=== PATIENT | male | born 1975 | race Caucasian/White ===

== ENCOUNTER → 2017-02-15 | Outpatient (CLI) | payer SELFPAY ==
[2017-02-15 11:54] LABS: BASOPHILS # (AUTO) 0.02 10*3/UL; BASOPHILS % (AUTO) 0.2 % (0-1); EOSINOPHILS # (AUTO) 0.14 10*3/UL; EOSINOPHILS % (AUTO) 1.5 % (0-8); HEMATOCRIT 46.7 % (42.0-52.0); HEMOGLOBIN 15.2 g/dL (14.0-18.0); LYMPHOCYTES # (AUTO) 1.54 10*3/uL; MEAN CORPUSCULAR HEMOGLOBIN 30.2 PG (27-31); MEAN CORPUSCULAR HGB CONC 32.5 g/dL (33-37); MEAN CORPUSCULAR VOLUME 92.7 FL (80-90); MEAN PLATELET VOLUME 10.2 FL (7.4-12.2); MONOCYTES # (AUTO) 0.86 10*3/UL (0.3-0.8); MONOCYTES % (AUTO) 9.2 % (5-15); NEUTROPHILS # (AUTO) 6.72 10*3/UL; NEUTROPHILS % (AUTO) 72.2 % (50-80); RED BLOOD COUNT 5.04 10^6/uL (4.70-6.10)
[2017-02-15 12:10] LABS: BILIRUBIN,URINE NEGATIVE (NEG); BLOOD UREA NITROGEN 20 mg/dL (7-22); BUN/CREATININE RATIO 15.38 (6-20); CALCIUM 9.2 mg/dL (8.7-10.7); CHOL/HDL RATIO 3.65 RATIO (0-4.0); COLOR,URINE YELLOW; EST GLOMERULAR FILTRATION > 60 (>60 ml/min/1.73m(2)); GLUCOSE, URINE (UA) NEGATIVE (NEG); HDL CHOLESTEROL 32 mg/dL (40-150); NITRATE,URINE NEGATIVE (NEG); OCCULT BLOOD,URINE NEGATIVE (NEG); PH,URINE 5.5 (5.0-8.5); PROTEIN,URINE 100 mg/dl (NEG); SERUM ALBUMIN 3.8 g/dL (3.5-4.8); SERUM CHOLESTEROL 117 mg/dL (120-200); UROBILINOGEN,URINE 0.2 mg/dL (0.2)
[2017-02-15 12:16] LABS: PLATELET MORPHOLOGY COMMENT NORMAL MORPHOLOGY (NORM); RBC MORPHOLOGY COMMENT NORMAL MORPHOLOGY (NORM); WBC MORPHOLOGY COMMENT NORMAL MORPHOLOGY (NORM)
[2017-02-15 12:17] LABS: CLARITY,URINE CLEAR (CLEAR); SQUAMOUS EPITHELIAL CELL,UR RARE; URINE SAMPLE TYPE CLEAN CATCH URINE; WBC,URINE 0-3
== END ==
LOC: MOB LAB 10:40
DX: I42.1 Obstructive hypertrophic cardiomyopathy (principal); E66.01 Morbid (severe) obesity due to excess calories; R31.29 Other microscopic hematuria; I10 Essential (primary) hypertension; N20.9 Urinary calculus, unspecified; I69.898 Other sequelae of other cerebrovascular disease; I82.891 Chronic embolism and thrombosis of other specified veins
CPT/HCPCS: 36415; 80053; 80061; 81001; 84443; 85025

== ENCOUNTER → 2017-06-08 | Outpatient (CLI) | payer SELFPAY ==
--- NOTE | 2017-06-08 09:06 | DI ---
XR WRIST COMPLETE MIN 3VW,06/08/2017 8:03 AM: Clinical History: Right wrist pain Previous Exam: December 26, 2014 Findings: 3 views of the right wrist are obtained, and demonstrate anatomic alignment without fractures. There is an old stable avulsion fracture of the right distal ulnar styloid. There is mild soft tissue swell ing. Impression: 1. No fracture. 2. Old avulsion of the distal right ulnar styloid. Note: Consider followup imaging in 7-10 days if pain persists or worsens.
== END ==
LOC: MOB RAD 08:05
PROVIDERS: ATTEND Physician Assistant
DX: M25.531 Pain in right wrist (principal); R60.0 Localized edema; Z87.898 Personal history of other specified conditions
CPT/HCPCS: 73110

== ENCOUNTER 2018-09-21 12:22 | Inpatient (IN) ==
[2018-09-21] MEDS ORDERED: DILTIAZEM 5 MG/ML - 5 ML IV ONE (13:02)
[2018-09-21] MEDS ORDERED: ONDANSETRON 4 MG/2 ML VIAL IVP ONE (13:02)
[2018-09-21] MEDS ORDERED: Sodium Chloride 0.9% 1,000 ML PRIMARY IV ONE (13:02)
--- NOTE | 2018-09-21 13:03 | PDOC ---
Epistaxis / Nasal FB - General Chief Complaint: Nasal/Mouth Problem /Injury Stated Complaint: nose bleed Date Seen by Provider: 09/21/18 Time Seen by Provider: 12:57 Source: POSITIVE: Patient Exam Limitations: POSITIVE: No limitations Nurse's Notes Reviewed & Considered: Yes - History of Present Illness Initial Comments: This is a well-developed, obese, soft 42-year-old male, complaining of nosebleed. Patient with epistaxis that's been ongoing since Wednesday, from the right naris. Patient stopped his Coumadin on Wednesday and continues to have nosebleed. He denies any headache, no sore throat, no chest pain or shortness of breath, no cough, no nausea vomiting or diarrhea, no hematuria dysuria, no myalgias or arthralgias, no rashes. Timing: REPORTS: Abrupt, Getting Worse Severity: Moderate Context: REPORTS: None Modifying Factors: improves with: Nothing Similar Symptoms Previously: No Recent Care Received: REPORTS: Denies Any Prior Injuries Related to Current Complaint?: No - Patient Allergies Allergies/Adverse Reactions: Allergies 3 Allergy/AdvReac Type Severity Reaction Status Date / Time No Known Allergies Allergy Verified 09/21/18 12:39 - Patient Home Medications Home Medications: Home Medications allopurinol 300 mg tablet 300 mg PO QD #90 tab 10/26/17 bupropion HCl 100 mg tablet 100 mg PO BID #180 tab 10/26/17 digoxin 125 mcg tablet 125 mcg PO QD #90 tab 10/26/17 diltiazem CD 300 mg capsule,extended release 24 hr 300 mg PO QD #90 cap furosemide 40 mg tablet 40 mg PO QD #90 tab 10/26/17 metoprolol tartrate 25 mg tablet 12.5 mg PO BID #90 tab 10/26/17 warfarin 5 mg tablet 15 mg PO DIRECTED #90 tab 03/15/18 Past Medical History - heen HEENT History: Hard of Hearing, Chipped or Loose Teeth Additional HEENT History: [place] in right ear Cardiovascular History: CHF, Arrhythmia, Syncope Additional Cardiovasular History: AFIB, Cardiomyopathy Respiratory History: Sleep Apnea Gastrointestinal History: Denies History Genitourinary History: Other (please comment) Additional Genitourinary History: Meatal stenosis with mentotomy and suprapubic catheter. Endocrine History: Denies History Musculoskeletal History: Gout, Joint Pain Prosthesis or Implant: No Additional Musculoskeletal History: joint pain in ankle. Neurological History: CVA, Other (please comment) Additional Neurological History: Hx of CVA and current admit for CVA. Blood Disorders: Denies History Psychiatric History: Depression, Substance Abuse Additional Psychiatric History: Acoholic 4 years ago, sober since. History of Sexually Transmitted Diseases: No Cancer History: Denies History History of MDRO: No History of Other Communicable Diseases: No Alcohol Use: None In the Past 12 Months, Have Used or Abuse Any Substance: None Previous Surgical History: Yes Anesthesia Reactions: No Malignant Hyperthermia: No Significant Family History: Cancer Additional Family History: father of pancreatic cancer. ROS - Limitations ROS Limitations: No Limitations Constitution: REPORTS: Denies Symptoms Cardiovascular: REPORTS: Denies Cardiac Symptoms Respiratory: REPORTS: Denies Resp Symptoms Neurological: REPORTS: Denies Neuro Symptoms Gastrointestinal: REPORTS: Denies GI Symptoms Endocrine: REPORTS: Denies Symptoms Musculoskeletal: REPORTS: Denies MS Symptoms Genitourinary: REPORTS: Denies Symptoms Eyes: REPORTS: Denies Symptoms ENT: REPORTS: Nose Bleed Skin: REPORTS: Denies Skin Symptoms Lympathic: REPORTS: Denies Lympathic Symptoms Immunologic: POSITIVE: Denies Symptoms Psychiatric: POSITIVE: Denies Psych Symptoms Nose Complaint Exam - General Appearance General Appearance: POSITIVE: Alert, Cooperative, No Acute Distress - HEENT Head / Face: POSITIVE: Atraumatic, Normal Inspection, No Facial Swelling Eyes: POSITIVE: Inspection Normal, PERRL, EOM's Intact, Eyelids Uninjured, Conjunctivae Uninjured, No Nystagmus, No Globe Trauma, Sclera Normal Ears: POSITIVE: Ears Normal Inspection, Auricle Normal Nose: POSITIVE: Epistaxis (right naris), Active Bleeding Oropharynx: POSITIVE: External Inspection Nml, Pharynx Inspect. Nml, Airway Intact, Voice Normal, Moist Mucous Membranes, No Oral Injury, Lips Normal, Gums Normal, No Drooling, No Thrush, Normal Gag Reflex Dental: POSITIVE: No Dental Injury - Neurological / Psychological Neurological: POSITIVE: Affect Apporpriate, Oriented X3, Motor Normal, Sensation Normal - Neck Neck: POSITIVE: Normal Inspection, Thyroid Normal - Respiratory Respiratory: POSITIVE: No Respiratory Distress, Breath Sounds Normal, Chest Non- Tender - Cardiovascular Cardiovascular: POSITIVE: Heart Sounds Normal, Strong Pulses, Irregularly Irreg Rhythm, Tachycardia Peripheral Pulses: Radial (R): 4+ - Abdomen Abdomen: Soft: (All Quadrants), Normal Bowel Sounds: (All Quadrants), Denies Tenderness: (All Quadrants), No Splenomegaly: (All Quadrants), No Hepatomegaly: (All Quadrants), No Guarding: (All Quadrants), No Rebound: (All Quadrants), No Palpable Pulse: (All Quadrants), No Palpabale Mass: (All Quadrants), No Distention: (All Quadrants), No Rigidity: (All Quadrants) - Skin Skin: POSITIVE: Normal Color, No Skin Rash Nose Complaint Progress - Results Reviewed by me CBC and BMP: 09/22/18 04:40 09/21/18 13:02 Lab Results:: Laboratory Results 3 09/21/18 09/21/18 09/21/18 13:02 13:02 13:02 WBC 10.32 RBC 5.30 Hgb 15.9 Hct 49.3 MCV 93.0 H MCH 30.0 MCHC 32.3 L RDW Std Deviation 48.6 RDW Coeff of [place] 14.5 Plt Count 249 MPV 9.8 Immature Gran % (Auto) 0.4 Neut % (Auto) 74.6 Lymph % (Auto) 13.0 [place] % (Auto) 11.0 Eos % (Auto) 0.8 Baso % (Auto) 0.2 Immature Gran # (Auto) 0.04 Neut # (Auto) 7.70 Lymph # (Auto) 1.34 [place] # (Auto) 1.14 H Eos # (Auto) 0.08 Baso # (Auto) 0.02 WBC Morphology Comment Normal morphology Plt Morphology Comment Normal morphology RBC Morph Comment Normal morphology PT 26.2 H INR 2.52 Sodium 142 Potassium 5.1 Chloride 106 Carbon Dioxide 27 Anion Gap 9 BUN 20 Creatinine 1.1 Estimated GFR > 60 BUN/Creatinine Ratio 18.18 Glucose 87 Calculated Osmolality 295.0 H Calcium 9.1 Total Bilirubin 0.7 AST 26 ALT 33 Alkaline Phosphatase 71 C-Reactive Protein < 0.5 NT-Pro-B Natriuret Pep 1850 H Total Protein 7.9 Albumin 4.2 Globulin 3.7 Albumin/Globulin Ratio 1.10 L Digoxin 3 09/21/18 13:25 WBC RBC Hgb Hct MCV MCH MCHC RDW Std Deviation RDW Coeff of Rossy Plt Count MPV Immature Gran % (Auto) Neut % (Auto) Lymph % (Auto) [place] % (Auto) Eos % (Auto) Baso % (Auto) Immature Gran # (Auto) Neut # (Auto) Lymph # (Auto) [place] # (Auto) Eos # (Auto) Baso # (Auto) WBC Morphology Comment Plt Morphology Comment RBC Morph Comment PT INR Sodium Potassium Chloride Carbon Dioxide Anion Gap BUN Creatinine Estimated GFR BUN/Creatinine Ratio Glucose Calculated Osmolality Calcium Total Bilirubin AST ALT Alkaline Phosphatase C-Reactive Protein NT-Pro-B Natriuret Pep Total Protein Albumin Globulin Albumin/Globulin Ratio Digoxin 0.5 L - Patient's Progress Status: POSITIVE: Improved MDM / ED Course: The patient was evaluated, an IV started, blood drawn and sent to the lab for studies, EKG and chest x-ray were obtained. Findings: CBC is unremarkable, CMP is normal. PTT is 26.2, INR is 2.52. BNP is 1850. EKG, per my interpretation, shows an atrial fibrillation with rate 125 beats a minute. Chest x-ray, per my interpretation, shows congestive heart failure with cardiomegaly. Assessment: #1 atrial fibrillation with RVR. #2 epistaxis. Plan: Patient is started on a car diazepam drip after a car dozing bolus. A Rhino Rocket is placed into his right naris and his epistaxis is controlled. Patient is admitted in stable condition. - Consult Consult (If Yes, Name of Consulting MD & Time Called): Yes (dr wu, 1440hrs) Consulting MD will see pt:: POSITIVE: [facility] [place] Admit Counseled: POSITIVE: Patient, RE: Lab Results, RE: Radiology Results, RE: DX Patient Care Time - Estimated PCT Patient Care Time (In Minutes): 30 Vital Signs - VS Reviewed Vital Signs Reviewed: Yes Discharge Clinical Impression: Epistaxis, Atrial fibrillation with RVR, Supratherapeutic INR, HTN ( hypertension) Discharge Disposition: Admit to Inpatient Condition: Stable Date Decision to Admit to Inpatient: 09/21/18 Time Decision to Admit to Inpatient: 16:30
--- NOTE | 2018-09-21 13:30 | EKG ---
Measurements Intervals [place] Rate: 125 P: WI: 0 QRS: -65 QRSD: 137 T: 120 QT: 327 QTc: 401 Interpretive Statements ATRIAL FIBRILLATION WITH RAPID VENTRICULAR RESPONSE LEFT AXIS DEVIATION [QRS AXIS < -30] LEFT ANTERIOR HEMIBLOCK INFERIOR MYOCARDIAL INFARCTION ,AGE UNDETERMINED SLOW R WAVE PROGRESSION V1-V5, CANNOT R/O OLD ANTERIOR MD Compared to ECG 04/14/2018 19:15:14 No significant changes Electronically Signed On 09-21-18 15:06:17 MST by Coleman Vergara [email or web address]
[2018-09-21 13:46] LABS: BASOPHILS # (AUTO) 0.02 10*3/UL; BASOPHILS % (AUTO) 0.2 % (0-1); EOSINOPHILS # (AUTO) 0.08 10*3/UL; EOSINOPHILS % (AUTO) 0.8 % (0-8); Hematocrit [HCT] 49.3 % (42.0-52.0); Hemoglobin [HGB] 15.9 g/dL (14.0-18.0); LYMPHOCYTES # (AUTO) 1.34 10*3/uL; MEAN CORPUSCULAR HGB CONC 32.3 g/dL (33-37); MEAN PLATELET VOLUME 9.8 FL (7.4-12.2); MONOCYTES # (AUTO) 1.14 10*3/UL (0.3-0.8); NEUTROPHILS % (AUTO) 74.6 % (50-80)
[2018-09-21 13:50] LABS: PLATELET MORPHOLOGY COMMENT NORMAL MORPHOLOGY (NORM); RBC MORPHOLOGY COMMENT NORMAL MORPHOLOGY (NORM); WBC MORPHOLOGY COMMENT NORMAL MORPHOLOGY (NORM)
[2018-09-21 14:06] LABS: BLOOD UREA NITROGEN 20 mg/dL (7-22); BUN/CREATININE RATIO 18.18 (6-20); SERUM ALBUMIN 4.2 g/dL (3.5-4.8)
[2018-09-21] MEDS: Diltiazem Drip 125 MG in Sodium Chloride 0.9% 100 ML IV ONE ×2 (14:48→22:49)
[2018-09-21] MEDS ORDERED: LIDOCAINE W/ SODIUM BICARB 0.5 ML SYR SUBD PRN (16:15)
[2018-09-21] MEDS ORDERED: CALCIUM CARBONATE 500 MG (TUMS) CHEWABLE TABLET PO PRN (16:15)
[2018-09-21] MEDS ORDERED: ACETAMINOPHEN 325 MG TABLET PO PRN (16:15)
[2018-09-21] MEDS ORDERED: DOCUSATE 100 MG CAPSULE PO PRN (16:15)
[2018-09-21] MEDS ORDERED: ONDANSETRON 4 MG/2 ML VIAL IVP PRN (16:15)
--- NOTE | 2018-09-21 16:20 | PDOC ---
HPI - History of Present Illness Date of Service: 09/21/18 Time of Service: 16:00 Chief Complaint: Nosebleed, tachycardia History of Present Illness: This is a 42 years old male with medical history significant for history of atrial fibrillation, history of gout who came into the hospital with history of nosebleed that started first on Wednesday he said he blew his nose and then started to have bleeding with pressure stopped then the same thing happened again yesterday he skipped his Coumadin and was able to stop the bleeding however today he started to bleed and was unable to stop the nosebleed and because of that he came into the ER. In the ER he was found to be in atrial fibrillation fast rate and he was given Cardizem IV then he was put on a drip. In addition he did have a rhino inserted to stop the bleeding. And he was admitted. He is denying chest pain or shortness of breath, nausea or dizziness. The bleeding seemed to be stopped. He said in addition to skipping the Coumadin he did not take his medication yesterday and today. Past Medical History Medical History: N. Atrial fibrillation. 2. Hypertrophic cardiomyopathy. 3. Obesity. 4. Hypertension. 5. Thromboembolic cerebrovascular accident in 2012, on chronic Coumadin therapy now for prevention. 6. Urethral strictures. 7. Gout. B. Obesity, morbidly obese Surgical History: 1. Left ankle fracture repair Pertinent Family History: Father due to pancreatic cancer. Mother is healthy Past Social History: Does not smoke or drink. Has one child, described as healthy. No alcohol. Currently resides with his mother and step-father Tobacco Use: Former Smoker In the Past 12 Months, Have Used or Abuse Any of the Following Substance: None Alcohol Use: None Medication / Allergies Home Medications: Home Medications 3 Medication Instructions Recorded Confirmed Type allopurinol 300 mg tablet 300 mg PO QD #90 tab 10/26/17 09/21/18 Rx bupropion HCl 100 mg tablet 100 mg PO BID #180 tab 10/26/17 09/21/18 Rx digoxin 125 mcg tablet 125 mcg PO QD #90 tab 10/26/17 09/21/18 Rx diltiazem CD 300 mg 300 mg PO QD #90 cap 10/26/17 09/21/18 Rx capsule,extended release 24 hr furosemide 40 mg tablet 40 mg PO QD #90 tab 10/26/17 09/21/18 Rx metoprolol tartrate 25 mg tablet 12.5 mg PO BID #90 tab 10/26/17 09/21/18 Rx warfarin 5 mg tablet 15 mg PO DIRECTED #90 tab 03/15/18 09/21/18 Rx Allergies/Adverse Reactions: Allergies 3 Allergy/AdvReac Type Severity Reaction Status Date / Time No Known Allergies Allergy Verified 09/21/18 12:39 Review of Systems - Review of Systems All Systems: Reviewed & No Additional Complaints Except as Stated Exam - Vitals Vital Signs: Vital Signs Temperature 97 F Temperature Source Temporal Artery Scan Pulse Rate [Apical] 141 Pulse Rate [Pulse Oximeter] 97 Respiratory Rate 15 Blood Pressure [Right Arm] 108/93 Blood Pressure [Left Arm] 155/133 Pulse Ox 95 Oxygen Delivery Method Room Air Height 5 ft 11 in Weight 337 lb 4.8 oz - General General Appearance: No Acute Distress - Head Head Exam: Normal Inspection - Eye Eye Exam: POSITIVE: Normal Appearance - ENT Additonal ENT Exam Details: No is in his right nostril - Respiratory Respiratory Exam: POSITIVE: Clear to Auscultation - Bilaterally - Cardiovascular Cardiovascular Exam: POSITIVE: Irregular Rhythm, Tachycardia - GI/Abdominal GI/Abdominal Exam: POSITIVE: Normal Bowel Sounds, Non Tender, Non Distended, Soft, No Organomegaly - Rectal Rectal Exam: POSITIVE: Deferred - External Exam: POSITIVE: Deferred Exam: POSITIVE: Deferred - Extremities Extremities Exam: POSITIVE: Normal Inspection - Back Back Exam: POSITIVE: Normal Inspection - Neurological Neurological Exam: POSITIVE: Alert, Oriented x 3, CN II-XII Intact, No Facial Droop, Speech Intact / Clear, Moves All Extremities Equally - Psychiatric Psychiatric Exam: POSITIVE: Normal Affect - Integumentary Integumentary Exam: POSITIVE: Normal Color Results - Labs CBC and BMP: 09/21/18 13:02 09/21/18 13:02 - EKG Data -: EKG Interpreted by Me - EKG Data EKG Interpretation: Other (EKG showed uncontrolled atrial fibrillation) - Imaging Status: Image Reviewed by Me (Shows cardiomegaly) Assessment and Plan - Patient Problems (1) Atrial fibrillation with RVR Current Visit: Yes Status: Acute Comment: Probably because of the bleeding and because he did not take his medications. We'll continue with the Cardizem drip continue with the metoprolol , and digoxin. We'll see whether we can switch him to by mouth Cardizem tomorrow. Code(s): I48.91 - Unspecified atrial fibrillation (2) Epistaxis Current Visit: Yes Status: Acute Comment: We'll hold the Coumadin also today. We'll try to speak with Dr. Roper I left a message to see if he has any suggestions. Code(s): R04.0 - Epistaxis (3) History of gout Current Visit: No Status: Acute Onset Date: 06/08/17 Comment: Continue allopurinol Code(s): Z87.39 - Personal history of other diseases of the musculoskeletal system and connective tissue
[2018-09-21] MEDS ORDERED: Sodium Chloride 0.9% 1,000 ML PRIMARY IV SCH (16:45)
[2018-09-21] MEDS: DIGOXIN 125 MCG TABLET PO SCH (16:55)
[2018-09-21] MEDS: CEPHALEXIN 500 MG CAPSULE PO SCH ×2 (18:54→21:51)
[2018-09-21] MEDS: Metoprolol TARTRATE Tab 25 MG TAB PO SCH (21:51)
[2018-09-21] MEDS: BUPROPION HCL 100 MG PO SCH (21:51)
[2018-09-22] MEDS ORDERED: Diltiazem Drip 125 MG in Sodium Chloride 0.9% 100 ML IV SCH (01:15)
[2018-09-22 05:15] LABS: BASOPHILS # (AUTO) 0.02 10*3/UL; BASOPHILS % (AUTO) 0.2 % (0-1); EOSINOPHILS # (AUTO) 0.07 10*3/UL; EOSINOPHILS % (AUTO) 0.5 % (0-8); Hematocrit [HCT] 46.8 % (42.0-52.0); Hemoglobin [HGB] 15.4 g/dL (14.0-18.0); LYMPHOCYTES # (AUTO) 1.66 10*3/uL; MEAN CORPUSCULAR HEMOGLOBIN 30.1 PG (27-31); MEAN CORPUSCULAR HGB CONC 32.9 g/dL (33-37); MEAN CORPUSCULAR VOLUME 91.4 FL (80-90); MEAN PLATELET VOLUME 10.2 FL (7.4-12.2); MONOCYTES # (AUTO) 1.02 10*3/UL (0.3-0.8); MONOCYTES % (AUTO) 7.8 % (5-15); NEUTROPHILS # (AUTO) 10.29 10*3/UL; NEUTROPHILS % (AUTO) 78.4 % (50-80); RED BLOOD COUNT 5.12 10^6/uL (4.70-6.10)
[2018-09-22 05:25] LABS: PLATELET MORPHOLOGY COMMENT NORMAL MORPHOLOGY (NORM); RBC MORPHOLOGY COMMENT NORMAL MORPHOLOGY (NORM); WBC MORPHOLOGY COMMENT NORMAL MORPHOLOGY (NORM)
--- NOTE | 2018-09-22 07:47 | PDOC(PROG) ---
Date of Service: 09/22/18 Time of Service: 08:00 Interval History: Subjective Patient was sitting in the bed doesn't appear in distress. No more bleeding. There is no chest pain no shortness of breath no dizziness. Objective : Data - Labs CBC and BMP: 09/22/18 04:40 09/21/18 13:02 Objective : Exam - General General Appearance: No Acute Distress, Cooperative - Head Head Exam: Normal Inspection - ENT Additonal ENT Exam Details: rhino is in place. - Respiratory Respiratory Exam: Clear to Auscultation - Bilaterally - Cardiovascular Cardiovascular Exam: Irregular Rhythm - GI/Abdominal GI/Abdominal Exam: Normal Bowel Sounds, Non Tender, Non Distended, Soft, No Organomegaly - Rectal Rectal Exam: Deferred - External Exam: Deferred - Extremities Extremities Exam: +1 Edema - Neurological Neurological Exam: Alert, Oriented x 3, CN II-XII Intact, No Facial Droop, Speech Intact / Clear, Moves All Extremities Equally - Psychiatric Psychiatric Exam: Normal Affect Assessment and Plan - Patient Problems (1) Atrial fibrillation with RVR Current Visit: Yes Status: Acute Comment: His heart rate seemed to be controlled with the diltiazem drip and restarting the digoxin and metoprolol. I think we can stop the Cardizem drip and switch him to by mouth medication. Will continue holding the warfarin today. Code(s): I48.91 - Unspecified atrial fibrillation (2) Epistaxis Current Visit: Yes Status: Acute Comment: Seemed to be stopped. I did speak with Dr. Roper and he said to keep the rhino in place for 48 hours. We'll talk to him again this afternoon. Code(s): R04.0 - Epistaxis (3) History of gout Current Visit: No Status: Acute Onset Date: 06/08/17 Comment: Continue allopurinol Code(s): Z87.39 - Personal history of other diseases of the musculoskeletal system and connective tissue
[2018-09-22] MEDS ORDERED: FUROSEMIDE 40 MG TABLET PO SCH (08:00)
[2018-09-22] MEDS: CEPHALEXIN 500 MG CAPSULE PO SCH ×4 (08:10→20:08)
[2018-09-22] MEDS: DIGOXIN 125 MCG TABLET PO SCH (08:10)
[2018-09-22] MEDS ORDERED: DILTIAZEM PO SCH ×2 (09:00)
[2018-09-22] MEDS ORDERED: DILTIAZEM HCL CD 120 MG CAP PO SCH (09:00)
[2018-09-22] MEDS ORDERED: ALLOPURINOL 300 MG TABLET PO SCH (09:00)
[2018-09-22] MEDS: Metoprolol TARTRATE Tab 25 MG TAB PO SCH (09:09)
[2018-09-22] MEDS: BUPROPION HCL 100 MG PO SCH ×2 (09:09→20:09)
[2018-09-22] MEDS ORDERED: ACETAMINOPHEN 325 MG TABLET PO PRN (13:24)
[2018-09-22] MEDS ORDERED: CALCIUM CARBONATE 500 MG (TUMS) CHEWABLE TABLET PO PRN (13:24)
[2018-09-22] MEDS ORDERED: ONDANSETRON 4 MG/2 ML VIAL IVP PRN (13:24)
[2018-09-22] MEDS ORDERED: DOCUSATE 100 MG CAPSULE PO PRN (13:24)
[2018-09-22] MEDS ORDERED: LIDOCAINE W/ SODIUM BICARB 0.5 ML SYR SUBD PRN (13:24)
--- NOTE | 2018-09-22 13:44 | DI ---
XR CXR 1VW,09/21/2018 2:33 PM: Clinical History: Tachycardia Previous Exam: None at this facility. Findings: AP views of the chest are obtained, and demonstrate cardiomegaly. The lungs are clear. The bony thora x is unremarkable. Overlying EKG leads are seen. Impression: Mild cardiomegaly otherwise unremarkable.
[2018-09-22] MEDS ORDERED: Metoprolol TARTRATE Tab 25 MG TAB PO SCH (21:00)
[2018-09-23] MEDS: FUROSEMIDE 40 MG TABLET PO SCH (07:22)
--- NOTE | 2018-09-23 07:46 | PDOC(PROG) ---
Date of Service: 09/23/18 Time of Service: 07:45 Interval History: Subjective Patient denying new symptoms. No dizziness, no more bleeding. No shortness of breath. There is also no chest pain. Objective : Data - Labs CBC and BMP: 09/22/18 04:40 09/21/18 13:02 Objective : Exam - General General Appearance: No Acute Distress, Cooperative - Head Head Exam: Normal Inspection - Eye Eye Exam: Normal Appearance - ENT Additonal ENT Exam Details: Packing in the right nostril. - Neck Neck Exam: Normal Inspection - Respiratory Respiratory Exam: Clear to Auscultation - Bilaterally - Cardiovascular Cardiovascular Exam: Irregular Rhythm - GI/Abdominal GI/Abdominal Exam: Normal Bowel Sounds, Non Tender, Non Distended, Soft, No Organomegaly - Rectal Rectal Exam: Deferred - External Exam: Deferred - Extremities Extremities Exam: Normal Inspection - Back Back Exam: Normal Inspection - Neurological Neurological Exam: Alert, Oriented x 3, CN II-XII Intact, No Facial Droop, Speech Intact / Clear, Moves All Extremities Equally - Psychiatric Psychiatric Exam: Normal Affect - Integumentary Integumentary Exam: Normal Color Assessment and Plan - Patient Problems (1) Atrial fibrillation with RVR Current Visit: Yes Status: Acute Comment: His heart rate at times goes up to the 110s, he is asymptomatic though. I think I'll increase the dosage of the metoprolol to 25 mg twice a day. Continue Cardizem and digoxin. Continue holding the warfarin for another day. Will decide later on after pulling the packing out to the keep the patient or discharge him home. Code(s): I48.91 - Unspecified atrial fibrillation (2) Epistaxis Current Visit: Yes Status: Acute Comment: This is resolved. I did speak with Dr. Roper yesterday and he said he'll come in today and pull the packing out. Code(s): R04.0 - Epistaxis (3) History of gout Current Visit: No Status: Acute Onset Date: 06/08/17 Comment: Continue allopurinol. Code(s): Z87.39 - Personal history of other diseases of the musculoskeletal system and connective tissue
[2018-09-23] MEDS: Metoprolol TARTRATE Tab 25 MG TAB PO SCH ×2 (08:10→21:33)
[2018-09-23] MEDS: BUPROPION HCL 100 MG PO SCH ×2 (08:10→21:33)
[2018-09-23] MEDS: DIGOXIN 125 MCG TABLET PO SCH (08:10)
[2018-09-23] MEDS: ALLOPURINOL 300 MG TABLET PO SCH (08:10)
[2018-09-23] MEDS: DILTIAZEM PO SCH ×2 (08:10)
[2018-09-23] MEDS: CEPHALEXIN 500 MG CAPSULE PO SCH ×4 (08:10→21:33)
[2018-09-24 04:26] VITALS: O2SAT 92
[2018-09-24 04:50] LABS: BASOPHILS # (AUTO) 0.02 10*3/UL; BASOPHILS % (AUTO) 0.2 % (0-1); EOSINOPHILS # (AUTO) 0.17 10*3/UL; EOSINOPHILS % (AUTO) 1.5 % (0-8); Hematocrit [HCT] 47.6 % (42.0-52.0); Hemoglobin [HGB] 15.8 g/dL (14.0-18.0); MEAN CORPUSCULAR HEMOGLOBIN 30.3 PG (27-31); MEAN CORPUSCULAR HGB CONC 33.2 g/dL (33-37); MEAN CORPUSCULAR VOLUME 91.2 FL (80-90); MONOCYTES # (AUTO) 1.14 10*3/UL (0.3-0.8); NEUTROPHILS # (AUTO) 8.01 10*3/UL; NEUTROPHILS % (AUTO) 70.2 % (50-80); RED BLOOD COUNT 5.22 10^6/uL (4.70-6.10)
[2018-09-24 04:52] LABS: PLATELET MORPHOLOGY COMMENT NORMAL MORPHOLOGY (NORM); RBC MORPHOLOGY COMMENT NORMAL MORPHOLOGY (NORM); WBC MORPHOLOGY COMMENT NORMAL MORPHOLOGY (NORM)
[2018-09-24 04:58] LABS: BLOOD UREA NITROGEN 20 mg/dL (7-22); BUN/CREATININE RATIO 16.66 (6-20)
[2018-09-24] MEDS: FUROSEMIDE 40 MG TABLET PO SCH (07:16)
[2018-09-24] MEDS: BUPROPION HCL 100 MG PO SCH (08:24)
[2018-09-24] MEDS: ALLOPURINOL 300 MG TABLET PO SCH (08:24)
[2018-09-24] MEDS: DILTIAZEM PO SCH ×2 (08:24)
[2018-09-24] MEDS: DIGOXIN 125 MCG TABLET PO SCH (08:24)
[2018-09-24] MEDS: CEPHALEXIN 500 MG CAPSULE PO SCH (08:24)
[2018-09-24] MEDS: Metoprolol TARTRATE Tab 25 MG TAB PO SCH (08:24)
[2018-09-24 08:49] VITALS: BP 103/86; RESP 20; TEMP 97.4
--- NOTE | 2018-09-24 10:19 | DCSUMMARY ---
Hospitalization Summary Hospital Course: Final Discharge Diagnosis: Current Visit Problems Problem Status Onset Code Epistaxis Acute R04.0 Atrial fibrillation with RVR Acute I48.91 Supratherapeutic INR Acute R79.1 Hypertension Acute I10 Diagnostic Data, Laboratory Data, and Procedures of Signifigance: CBC and BMP 09/24/18 04:17 18 04:17 Laboratory Results 09/24/18 09/24/1818 Range/Units 04:17 04:17 09:19 WBC 11.41 H (4.8-10.8) 10^3/uL RBC 5.22 (4.70-6.10) 10^6/uL Hgb 15.8 (14.0-18.0) g/dL Hct 47.6 (42.0-52.0) % MCV 91.2 H (80-90) FL MCH 30.3 (27-31) PG MCHC 33.2 (33-37) g/dL RDW Std Deviation 47.8 (39-50) fL RDW Coeff of Rossy 14.5 (11.5-14.5) % Plt Count 245 (140-350) 10*3/uL MPV 10.0 (7.4-12.2) FL Immature Gran % (Auto) 0.6 (0-5) % Neut % (Auto) 70.2 (50-80) % Lymph % (Auto) 17.5 (10-50) % Mcdonough % (Auto) 10.0 (5-15) % Eos % (Auto) 1.5 (0-8) % Baso % (Auto) 0.2 (0-1) % Immature Gran # (Auto) 0.07 10*3/UL Neut # (Auto) 8.01 10*3/UL Lymph # (Auto) 2.00 10*3/uL Mcdonough # (Auto) 1.14 H (0.3-0.8) 10*3/UL Eos # (Auto) 0.17 10*3/UL Baso # (Auto) 0.02 10*3/UL WBC Morphology Comment Normal morphology (NORM) Plt Morphology Comment Normal morphology (NORM) RBC Morph Comment Normal morphology (NORM) PT 11.7 H (9.7-11.4) secs INR 1.13 (0.00-5.90) N/A Sodium 138 (135-145) meq/L Potassium 4.1 (3.8-5.2) meq/L Chloride 102 (98-112) meq/L Carbon Dioxide 26 (23-33) meq/L Anion Gap 10 (5-20) BUN 20 (7-22) mg/dL Creatinine 1.2 (0.70-1.50) mg/dL Estimated GFR > 60 (>60 ml/min/1.73m(2)) BUN/Creatinine Ratio 16.66 (6-20) Glucose 97 (78-110) mg/dL Calculated Osmolality 288.0 (267-292) mOsm/kg Calcium 9.0 (8.7-10.7) mg/dL Digoxin 0.9 (0.8-2.0) ng/mL History and Physical pertinent to Admission: Past Medical History Medical History: N. Atrial fibrillation. 2. Hypertrophic cardiomyopathy. 3. Obesity. 4. Hypertension. 5. Thromboembolic cerebrovascular accident in 2012, on chronic Coumadin therapy now for prevention. 6. Urethral strictures. 7. Gout. B. Obesity, morbidly obese Surgical History: 1. Left ankle fracture repair Pertinent Family History: Father due to pancreatic cancer. Mother is healthy Past Social History: Does not smoke or drink. Has one child, described as healthy. No alcohol. Currently resides with his mother and step-father Tobacco Use: Former Smoker Course of Hospitalization: This very nice 42-year-old gentleman who was admitted by Dr. Adrianna ramos epistaxis . He is on Coumadin for his A. fib. His notably as resolved his packing was pulled out he is feeling fine this morning and will like to be discharged home. He will resume his Coumadin and follow up with Dr. Pinzon at the [facility] for his Coumadin clinic his INR today is 1.15. He is not interested in starting any other anticoagulation he does understand that it will take a few days to be therapeutic again and will watch closely for nosebleeds he also understands that he might be a little at higher risk for stroke during this period but he is not interested on going on Eliquis. He will resume his Coumadin. Also we have increased the metoprolol to 25 twice a day for better rate control of his A. fib labs were reviewed patient was seen with Casie ALBARADO on agreement patient will be discharged home On the date of discharge, the patient was examined: Gen.: No acute distress, alert, nontoxic Heart: Regular rate and rhythm, no murmurs, clicks, gallops, or rubs Lungs: Clear to auscultation bilaterally, breathing is nonlabored Abdomen/GI: Normal tones on auscultation, soft, nontender, nondistended Musculoskeletal/extremities: No clubbing, cyanosis, or edema Vitals reviewed and are listed below Vital Signs (24 hrs) Temp Pulse Pulse Resp BP BP Pulse Ox 09/24/18 08:42 97.4 F 78 20 103/86 92 09/24/18 08:24 75 09/24/18 07:00 76 09/24/18 04:26 97.8 F 73 12 102/64 92 09/24/18 03:00 64 09/23/18 23:36 97.8 F 70 20 100/74 93 09/23/18 23:00 71 09/23/18 20:09 98.3 F 82 18 103/82 94 09/23/18 19:00 92 18 09/23/18 16:46 97.8 F 80 20 127/87 94 09/23/18 15:00 77 09/23/18 11:24 97.9 F 84 24 104/82 94 09/23/18 11:00 88 Assessment and Plan: 1. As per discharge assessments above 2. Disposition: Home 3. Condition on discharge, stable and improved. 4. Diet: regular diet 5. Activities: resume normal activities 6. Follow-Up: 1. PCP 2. 7. Medications at the Time of Discharge: Home Medications 3 Medication Instructions Recorded Confirmed Type allopurinol 300 mg tablet 300 mg PO QD #90 tab 10/26/17 09/21/18 Rx bupropion HCl 100 mg tablet 100 mg PO BID #180 tab 10/26/17 09/21/18 Rx digoxin 125 mcg tablet 125 mcg PO QD #90 tab 10/26/17 09/21/18 Rx diltiazem CD 300 mg 300 mg PO QD #90 cap 10/26/17 09/21/18 Rx capsule,extended release 24 hr furosemide 40 mg tablet 40 mg PO QD #90 tab 10/26/17 09/21/18 Rx metoprolol tartrate 25 mg tablet 25 mg PO BID #90 tab 10/26/17 09/21/18 Rx warfarin 5 mg tablet 15 mg PO DIRECTED #90 tab 03/15/18 09/21/18 Rx Patient does have an a lot of metoprolol home does not need a prescription 8. Time, care, counseling and coordination of care for this discharge is greater than 30 minutes. Exam - Vitals Vital Signs: Vital Signs Temperature 97.4 F Temperature Source Temporal Artery Scan Pulse Rate [Telemetry] 78 Pulse Rate [Apical] 106 Pulse Rate [Pulse Oximeter] 84 Pulse Rate 75 Respiratory Rate 20 Blood Pressure [Right Radial 117/103 Artery] Blood Pressure [Right Arm] 103/86 Blood Pressure [Left Arm] 104/82 Blood Pressure 143/107 Pulse Ox 92 Oxygen Flow Rate Room Air Oxygen Delivery Method Room Air Height 5 ft 11 in Weight 331 lb 9.6 oz
== END 2018-09-24 12:29 | disposition home or self-care (01) | DRG 310 ==
LOC: ER 12:22 → ICU 15:24 → MED/SURG 09-22 12:16
PROVIDERS: ADMIT Internal Medicine; ATTEND Internal Medicine

== ENCOUNTER 2019-10-24 11:48 | Inpatient (IN) ==
[2019-10-24] MEDS ORDERED: DOCUSATE 100 MG CAPSULE PO PRN (12:36)
[2019-10-24] MEDS ORDERED: LIDOCAINE HCL 2 % 10 ML JELLY URO-JECT TOPICAL PRN (12:36)
[2019-10-24] MEDS ORDERED: CALCIUM CARBONATE 500 MG (TUMS) CHEWABLE TABLET PO PRN (12:36)
[2019-10-24] MEDS ORDERED: LIDOCAINE W/ SODIUM BICARB 0.5 ML SYR SUBD PRN (12:36)
[2019-10-24] MEDS ORDERED: ACETAMINOPHEN 325 MG TABLET PO PRN (12:36)
[2019-10-24] MEDS ORDERED: ONDANSETRON 4 MG/2 ML VIAL IVP PRN (12:36)
[2019-10-24] MEDS ORDERED: Warfarin 5 MG TAB PO SCH (12:45)
[2019-10-24] MEDS ORDERED: DIGOXIN 125 MCG TABLET PO SCH (12:45)
[2019-10-24 13:00] LABS: BASOPHILS # (AUTO) 0.02 10*3/UL; BASOPHILS % (AUTO) 0.1 % (0-1); EOSINOPHILS # (AUTO) 0.05 10*3/UL; EOSINOPHILS % (AUTO) 0.3 % (0-8); Hematocrit [HCT] 44.3 % (42.0-52.0); Hemoglobin [HGB] 13.9 g/dL (14.0-18.0); LYMPHOCYTES # (AUTO) 0.54 10*3/uL; MEAN CORPUSCULAR HGB CONC 31.4 g/dL (33-37); MEAN CORPUSCULAR VOLUME 90.8 FL (80-90); MEAN PLATELET VOLUME 8.8 FL (7.4-12.2); MONOCYTES # (AUTO) 1.36 10*3/UL (0.3-0.8); MONOCYTES % (AUTO) 8.6 % (5-15); NEUTROPHILS # (AUTO) 13.72 10*3/UL; NEUTROPHILS % (AUTO) 87.3 % (50-80); RED BLOOD COUNT 4.88 10^6/uL (4.70-6.10)
[2019-10-24 13:02] LABS: PLATELET MORPHOLOGY COMMENT NORMAL MORPHOLOGY (NORM); RBC MORPHOLOGY COMMENT NORMAL MORPHOLOGY (NORM); WBC MORPHOLOGY COMMENT NORMAL MORPHOLOGY (NORM)
[2019-10-24] MEDS ORDERED: Influenza 19-20 Vaccine (6mo+) 60 MCG/0.5 ML SYRINGE IM ONE (13:08)
[2019-10-24 13:11] LABS: BUN/CREATININE RATIO 18.66 (6-20); SERUM ALBUMIN 3.4 g/dL (3.5-4.8)
[2019-10-24] MEDS ORDERED: PHYTONADIONE 10 MG/1 ML AMPULE PO ONE ×2 (13:25→17:41)
[2019-10-24] MEDS ORDERED: METOPROLOL TARTRATE 5 MG/5 ML VIAL IVP ONE (13:25)
[2019-10-24] MEDS ORDERED: Spironolactone Tab 25 MG TAB PO SCH (13:30)
[2019-10-24] MEDS ORDERED: POTASSIUM CHLORIDE 20 MEQ TAB PO ONE (13:31)
[2019-10-24 15:58] VITALS: BP 119/64; RESP 21; TEMP 98.2
[2019-10-24 17:01] VITALS: O2SAT 91
[2019-10-24] MEDS ORDERED: Metoprolol TARTRATE Tab 25 MG TAB PO SCH (21:00)
[2019-10-24] MEDS ORDERED: BUPROPION HCL 100 MG PO SCH (21:00)
[2019-10-25] MEDS ORDERED: ALLOPURINOL 300 MG TABLET PO SCH (09:00)
[2019-10-25] MEDS ORDERED: POTASSIUM CHLORIDE 20 MEQ TAB PO SCH (09:00)
== END 2019-10-24 18:15 | disposition short-term general hospital (02) | DRG 314 ==
LOC: MED/SURG 12:19
PROVIDERS: ADMIT Family Medicine; ATTEND Family Medicine